=== PATIENT | male | born 1995 | race Hispanic/Latino ===

== ENCOUNTER 2020-08-18 15:22 | Emergency (ER) | payer SELFPAY ==
[2020-08-18] MEDS ORDERED: Ibuprofen 800 MG TAB ONE (16:16)
== END 2020-08-18 16:36 | disposition home or self-care (01) ==
LOC: CSHERS 15:22
DX: H66.92 Otitis media, unspecified, left ear (principal); H61.23 Impacted cerumen, bilateral; H60.92 Unspecified otitis externa, left ear; F17.210 Nicotine dependence, cigarettes, uncomplicated
CPT/HCPCS: 99282

== ENCOUNTER 2021-05-03 16:25 | Emergency (ER) | payer SELFPAY | END 2021-05-03 20:23 | disposition home or self-care (01) | LOC: CSHERS 16:25 | DX: H66.92 Otitis media, unspecified, left ear (principal); F17.210 Nicotine dependence, cigarettes, uncomplicated | CPT/HCPCS: 99282 ==